=== PATIENT | female | born 1955 | race Caucasian/White ===

== ENCOUNTER → 2016-03-26 | Outpatient (CLI) | payer OTHER ==
[~2016-03-26] MED LIST: DEPO METHYLPREDNISOLONE 80 MG/ML SDV ONE; IOPAMIDOL (ISOVUE 370) 100 ML BTL IV ONE; LIDOCAINE 1% 30 ML SDV ONE; NA BICARBONATE 50 MEQ/50 ML VIAL ONE; ROPIVACAINE HCL 150 MG/30 ML INJ ONE
--- NOTE | 2016-03-26 14:05 | DX ---
Right Hip Fluoroscopic-Guided Therapeutic Injection, for intraarticular corticosteroid and anesthetic . History: Hip pain. Crosscutting Measure #226: Current tobacco user: no. Consent: Informed written and oral consent was obtained. Fluoroscopy Time: 0.1 minute. Cumulative dose 0.1 mGy. Procedure: Utilizing fluoroscopic guidance and sterile technique, the hip was prepped in usual steri le fashion. Lidocaine with bicarbonate was used as local anesthesia. Then, a 22-gauge spinal needle w as advanced into the lateral femoral neck aspect of the hip joint. 1 cc nonionic contrast injected in to the joint to document positioning. Then, 4 mL of Ropivacaine and 40 mg of Depo-medrol were injecte d into the hip joint. Needle was removed. Manual hemostasis was achieved. Patient tolerated the proce dure well without immediate complications. Discharge instructions were given. Impression: 1. Successful right hip injection under fluoroscopic guidance for intraarticular placement of cortico steroid and long-acting anesthetic. 2. No immediate complications.
== END ==
LOC: FIMAGING 12:52
PROVIDERS: ATTEND Orthopaedic Surgery
PROC: 3E0U33Z Introduction of Anti-inflammatory into Joints, Percutaneous Approach (ICD-10-PCS; principal; 2016-03-26)
DX: M16.11 Unilateral primary osteoarthritis, right hip (principal)
CPT/HCPCS: J1020; J2795; Q9967

== ENCOUNTER → 2016-08-24 | Outpatient (CLI) | payer OTHER | LOC: BRMIMAGING 08:33 | PROVIDERS: ATTEND Family Medicine | DX: Z13.820 Encounter for screening for osteoporosis (principal); M81.0 Age-related osteoporosis without current pathological fracture; Z78.0 Asymptomatic menopausal state ==

== ENCOUNTER → 2017-05-26 | Outpatient (CLI) | payer OTHER | LOC: FIMAGING 11:10 | PROVIDERS: ATTEND Physical Medicine & Rehabilitation | DX: M25.551 Pain in right hip (principal); R93.8 Abnormal findings on diagnostic imaging of other specified body structures; Z85.9 Personal history of malignant neoplasm, unspecified | CPT/HCPCS: 78320; A9503 ==